=== PATIENT | female | born 1935 | race Caucasian/White ===

== ENCOUNTER 2018-09-06 11:13 | Outpatient (CLI) | payer MEDICARE, MEDICAID | END 2018-09-06 11:14 | disposition home or self-care (01) | LOC: C.CTH 11:13 | DX: R10.30 Lower abdominal pain, unspecified (principal) ==

== ENCOUNTER 2018-09-20 12:34 | Outpatient (CLI) | payer OTHER | END 2018-09-20 12:35 | disposition home or self-care (01) | LOC: C.PAT 12:34 | DX: K40.90 Unilateral inguinal hernia, without obstruction or gangrene, not specified as recurrent (principal) ==

== ENCOUNTER 2018-10-03 06:58 | Day surgery (SDC) | payer OTHER ==
[2018-09-20 12:59] VITALS: BMI 23.0
[2018-10-03] MEDS ORDERED: Bupivacaine 0.25% 20 ML INJ IJ ONE (08:10)
[2018-10-03] MEDS ORDERED: Vancomycin 1 gm/D5W 200 ml 1 GM/200 ML BAG IVPB ONE (08:11)
[2018-10-03] MEDS ORDERED: Lidocaine/Epinephrine 1% 1:100000 10 ML IJ ONE (08:11)
[2018-10-03] MEDS ORDERED: Propofol 10 mg/ml Inj (20 ML) ONE (08:32)
[2018-10-03] MEDS: Bupivacaine Liposomal Inj 20 ml INFIL ONE ×2 (10:17→11:10)
[2018-10-03] MEDS: Sodium Chloride 0.9% 40 ML IV ONE ×2 (10:18→11:10)
[2018-10-03] MEDS ORDERED: Neostigmine 1:1000 (1 mg/ml) Inj ONE (11:10)
[2018-10-03] MEDS ORDERED: HYDROmorphone 0.5 mg/0.5 ml ISec IVP PRN (11:33)
--- NOTE | 2018-10-03 12:03 | PCM.SURG1 ---
Surgeon's Initial Post Op Note - Surgeon's Notes Surgeon: Ryder Cruz MD Shearing Machine Tender: MARGA Aponte Type of Anesthesia: General Endo Pre-Operative Diagnosis: Right inguinal hernia Operative Findings: Right indirect inguinal hernia. Right femoral hernia containing fat Post-Operative Diagnosis: Right direct inguinal hernia. Right femoral hernia containing fat Operation Performed: Robotic Right direct inguinal hernia with Mesh. Robotic Right femoral hernia repair with mesh. Lap B/L TAP block placement Specimen/Specimens Removed: Femoral hernial content Estimated Blood Loss: EBL {In ML}: 10 Blood Products Given: N/A Drains Used: No Drains Post-Op Condition: Good Date of Surgery/Procedure: 10/03/18 Time of Surgery/Procedure: 12:04
[2018-10-03 13:02] VITALS: RESP 16
[2018-10-03 15:40] VITALS: BP 119/59; PULSE 74; TEMP 97.5; O2SAT 99
--- NOTE | 2018-10-04 04:22 | OP ---
PROCEDURE DATE: 10/03/2018 PREOPERATIVE DIAGNOSES: 1. Right inguinal hernia. 2. Abdominal pain. POSTOPERATIVE DIAGNOSES: 1. Right direct inguinal hernia. 2. Right femoral hernia. 3. Abdominal pain. PROCEDURES PERFORMED: 1. Robotic right direct inguinal hernia repair with mesh. 2. Robotic right femoral hernia repair with mesh. 3. Laparoscopic bilateral TAP block placement SURGEON: Herbert Cruz MD SOUND PRINTER: SANTOSH Aponte ANESTHESIA: General endotracheal tube anesthesia. ESTIMATED BLOOD LOSS: Around 10 mL. DRAIN: None. PATHOLOGY: The femoral hernial sac content was sent to the pathology. COMPLICATIONS: None. INTRAOPERATIVE FINDINGS: The patient had right direct inguinal hernia and the patient also had a right femoral hernia. DESCRIPTION OF PROCEDURE: On intraoperative steps, this is an 83-year-old female who was diagnosed with right inguinal hernia and the patient also had abdominal pain and the patient was consented for the robotic right inguinal hernia repair with mesh and the patient was brought to the OR, placed supine on the operating table. After induction of anesthesia, the abdomen was prepped and draped in the usual sterile fashion. Supraumbilical transverse incision was made using the open technique. Peritoneal cavity was entered. Pneumo was created. Another 3.8-mm port was placed in upper abdomen. Robot was brought in. Camera arm as well as arm 1 and arm 2 was docked. The patient found to have right direct inguinal hernia. The patient had no hernia on the left side and first the peritoneum was dissected from the right ASIS up to the midline. The midline dissection was done up to the space of Retzius. The lateral peritoneal reflection was dissected off the abdominal wall and the gonadal vessels as well as the round ligament was also . The direct hernial sac was reduced and the inferior dissection was done up to the pelvic brim and the right anatomical mesh was placed. Before placing the mesh, the direct hernial empty sac was everted and it was tacked in the midline to fill the defect and after that the mesh was implanted and the mesh was cut to surround the round ligament and after that the peritoneum was sutured to the base with 0 Vicryl as well as 3-0 PDS V-Loc continuous sutures and during the procedure, the patient also found to have femoral hernia and the femoral hernia was reduced and the content was excised and it was sent off the table for the pathology and the mesh that was used for inguinal hernia that mesh was also lowered down up to the femoral defect area to cover the defect and to reinforce the hernial defect site and after completion of the procedure, the robot was undocked. All the instrument was taken out and the procedure was converted to laparoscopic and laparoscopic bilateral TAP block was given. The 30:30 mL of Exparel with Decadron was injected and after proper TAP block all the ports were taken out under vision. Pneumo was deflated. The umbilical port site was closed in two layers, the fascia with 0 Vicryl interrupted suture, skin with 4-0 Monocryl and dry sterile dressing was applied. The patient tolerated the procedure well. Count of instrument and gauze was correct. There was no apparent complication. The patient was extubated in the OR, sent to the postanesthesia care unit in stable condition. Herbert Cruz MD
== END 2018-10-03 15:42 | disposition home or self-care (01) ==
LOC: C.SDS 06:58
PROVIDERS: ATTEND Surgery Surgical Critical Care
DX: K40.90 Unilateral inguinal hernia, without obstruction or gangrene, not specified as recurrent (principal); K41.90 Unilateral femoral hernia, without obstruction or gangrene, not specified as recurrent